=== PATIENT | male | born 1940 | race Caucasian/White ===

== ENCOUNTER 2020-07-25 08:30 | Day surgery (SDC) | payer MEDICARE ==
[2020-07-24 11:12] VITALS: BMI 29.5
[2020-07-25 09:16] LABS: Hemoglobin 13.4 g/dL (14.0-18.0)
[2020-07-25 09:40] LABS: Anion Gap 16 mmol/L (10-20); BUN (Urea Nitrogen) 17 mg/dL (8.4-25.7); Calc. Creatinine Clearance 71 mL/min (70-130); Calcium 9.2 mg/dL (7.8-10.44); Carbon Dioxide 22 mmol/L (23-31); Chloride 105 mmol/L (98-107); Glucose 139 mg/dL (83-110); Potassium 4.1 mmol/L (3.5-5.1); Sodium 139 mmol/L (136-145)
[2020-07-25] MEDS ORDERED: Fentanyl 100 MCG/2 ML VIAL ONE (10:31)
[2020-07-25] MEDS ORDERED: XYLOCAINE 2%-EPI 1:100,000 20 ML VIAL ONE (10:42)
[2020-07-25] MEDS ORDERED: Bacitracin Zinc Ointment 30 gm TUBE ONE (10:43)
[2020-07-25] MEDS ORDERED: Ciprofloxacin 0.2% Otic (0.25ML CONTAINER) ONE (10:43)
[2020-07-25] MEDS ORDERED: EPINEPHrine 1 MG/ML AMP ONE (10:44)
[2020-07-25] MEDS ORDERED: NEOMYCIN-POLYMYXIN-HC EAR SUSP 200 DROP/10 ML BOT ONE (11:42)
[2020-07-25] MEDS ORDERED: Lidocaine 1% PF 5 ML VIAL ONE (13:29)
[2020-07-25] MEDS ORDERED: PROPOFOL 200 MG/20 ML VIAL ONE (13:29)
[2020-07-25] MEDS ORDERED: Dexamethasone 20 MG/5 ML VIAL ONE (13:29)
[2020-07-25] MEDS ORDERED: Succinylcholine 200 MG/10 ml SYRINGE FS ONE (13:29)
[2020-07-25] MEDS ORDERED: Ondansetron PF 4 MG/2 ML Vial ONE (13:29)
--- NOTE | 2020-07-26 06:17 | OP ---
DATE OF PROCEDURE: 07/25/2020 PREOPERATIVE DIAGNOSES: 1. Left canal cholesteatoma. 2. Left tympanic membrane perforation. 3. Left canal atresia. POSTOPERATIVE DIAGNOSES: 1. Left canal cholesteatoma. 2. Left tympanic membrane perforation. 3. Left canal atresia. PROCEDURES PERFORMED: 1. Left underlay tympanoplasty using temporalis fascia. 2. Canal plasty with removal of atretic tissue. 3. Split-thickness skin graft harvest. 4. Split-thickness skin graft canal plasty. 5. Use of binocular microscopy and facial nerve monitoring for 1 hour. PROCEDURE IN DETAIL: After consent was obtained, the patient was identified and brought to the operating room and placed on operating table in supine position. General endotracheal anesthesia was obtained, and the patient was positioned for surgery. A small incision was made, and the temporalis fascial graft was harvested. After the patient was prepped and draped, facial nerve monitor was placed and documented to be functioning well. We turned attention to the ear canal, and the majority of the surgery was done through the transcanal. The small split-thickness skin graft was harvested with a freehand approach from the postauricular skin and placed on the back table. Under microscopic visualization, the patient had a small perforation in the atretic skin from this severe prior chronic otitis externa with purulence draining out of the center. Under microscopic visualization, this area was injected with 1% lidocaine with 1:100,000 epinephrine and atretic tissue was removed with microdebrider. This then allowed for examination of the eardrum where tympanic perforation was identified. We were able to continue our canal injection and raised a posterior tympanomeatal flap. A small temporalis graft was then placed. Once the middle ear was entered in underlay fashion, the tympanomeatal flap was reapproximated over the graft after Gelfoam was used to fill the middle ear space. We then laid the flap down and continued to pack the external canal such that the tympanomeatal flap remained in place at the area where the skin had been removed due to the atresia. A small skin graft was placed and packed against this canal wall using Gelfoam as well. At the completion of the procedure, all incisions were closed and the cotton ball with bacitracin was used to secure the Gelfoam against the tympanic membrane and skin graft. The patient was then awakened, extubated, and taken to recovery in stable condition. Job ID: [id number]
== END 2020-07-25 13:55 | disposition home or self-care (01) ==
LOC: SDC 08:30
PROVIDERS: ATTEND Specialist
PROC: 09U807Z Supplement Left Tympanic Membrane with Autologous Tissue Substitute, Open Approach (ICD-10-PCS; principal; 2020-07-25)
PROC: 09Q Ear, Nose, Sinus, Repair (ICD-10-PCS; 2020-07-25)
DX: H90.3 Sensorineural hearing loss, bilateral (principal); H71.93 Unspecified cholesteatoma, bilateral; H72.92 Unspecified perforation of tympanic membrane, left ear; E78.00 Pure hypercholesterolemia, unspecified; I10 Essential (primary) hypertension; G47.33 Obstructive sleep apnea (adult) (pediatric); N40.0 Benign prostatic hyperplasia without lower urinary tract symptoms; Z87.891 Personal history of nicotine dependence; Z79.899 Other long term (current) drug therapy
CPT/HCPCS: 36415; 80048; 85014; 85018; 93005; 93010; J0171; J1100; J2405; J2704; J3010